=== PATIENT | female | born 1950 | race Caucasian/White ===

== ENCOUNTER 2023-06-29 07:31 | Day surgery (SDC) | payer MEDICARE ==
[2023-06-29] MEDS ORDERED: Lidocaine 1% PF 5 ML VIAL ONE (08:09)
[2023-06-29] MEDS ORDERED: Sodium Bicarbonate 2.5 MEQ/5 ML VIAL ONE (08:10)
[2023-06-29] MEDS ORDERED: Iopamidol-M 300 61% 15 ML VIAL ONE (08:15)
[2023-06-29 11:24] VITALS: BP 145/67; TEMP 96
== END 2023-06-29 10:15 | disposition home or self-care (01) ==
LOC: CSHRAD 07:31
PROVIDERS: ATTEND Neurological Surgery
PROC: B02BYZZ Computerized Tomography (CT Scan) of Spinal Cord using Other Contrast (ICD-10-PCS; principal; 2023-06-29)
DX: M47.12 Other spondylosis with myelopathy, cervical region (principal); R27.0 Ataxia, unspecified; M47.22 Other spondylosis with radiculopathy, cervical region
CPT/HCPCS: 62305; 72126; 72129; 72132; Q9967

== ENCOUNTER 2023-12-30 21:07 | Observation (INO) | payer MEDICARE ==
[2023-12-30 22:34] LABS: #Monocytes 0.9 10x3/uL (0.0-1.1); #Neutrophils 6.8 10x3/uL (1.5-8.4); %Basophils 0.1 % (0.0-2.0); %Eosinophils 0.4 % (0.0-6.0); %Lymphocytes 19.7 % (18.0-47.0); %Monocytes 8.9 % (0.0-10.0); %Neutrophils 70.6 % (40.0-75.0); Hematocrit 33.9 % (34.9-44.5); Hemoglobin 12.3 g/dL (12.0-15.5); Mean Corpuscular HGB CONC 36.3 g/dL (32.0-36.0); Mean Corpuscular Hemoglobin 31.4 pg (27.0-33.0); Mean Corpuscular Volume 86.5 fl (81.6-98.3); Mean Platelet Volume 9.7 fl (7.4-10.4); Platelet Count 338 10x3/uL (150-450); RBC Distribution Width 12.9 % (11.5-14.5); Red Blood Cell (RBC) Count 3.92 10x6/uL (3.90-5.03); White Blood Cell (WBC) Count 9.7 10x3/uL (3.5-10.5)
[2023-12-30 22:41] LABS: Bilirubin 1+ (Negative); Blood, Urine 250 (Negative); Glucose, Urine (Dipstick) Normal (Negative); Ketone, Urine 150 mg/dL (Negative); Leukocyte 500 (Negative); Nitrite Positive (Negative); Protein, Urine (Dipstick) 100 mg/dl (Neg-Trace)
[2023-12-30 23:02] LABS: ALT (SGPT) 19 U/L (8-55); AST (SGOT) 18 U/L (5-34); Albumin 4.3 g/dL (3.4-4.8); Alkaline Phosphatase 109 U/L (40-110); Anion Gap 16 mmol/L (10-20); BUN (Urea Nitrogen) 14 mg/dL (9.8-20.1); Bilirubin, Total 0.4 mg/dL (0.2-1.2); Calc. Creatinine Clearance 0 mL/min (70-130); Calcium 9.2 mg/dL (7.8-10.44); Carbon Dioxide 20 mmol/L (23-31); Chloride 93 mmol/L (98-107); Estimated GFR 91; Globulin 2.2 g/dL (2.4-3.5); Glucose 118 mg/dL (83-110); Potassium 4.1 mmol/L (3.5-5.1); Protein, Total 6.5 g/dL (5.8-8.1); Sodium 125 mmol/L (136-145)
[2023-12-30 23:04] LABS: Clarity Cloudy (Clear)
[2023-12-30 23:08] LABS: CAUTI Indications for Culture Pelvic or flank pain
[2023-12-30 23:09] LABS: RBC/HPF Greater than 50 HPF (0-3)
[2023-12-30 23:10] LABS: Bacteria/HPF None Seen HPF (None Seen); Squamous Epithelial 0-3 HPF (0-3)
[2023-12-30 23:11] LABS: Urine Culture Reflex No No
[2023-12-30] MEDS ORDERED: cefTRIAXone (ROCEPHIN) 1 GM VIAL ONE (23:48)
[2023-12-31 04:00] VITALS: BMI 36.8
[2023-12-31] MEDS: Magnesium Sulfate/D5W 1 GM in Premix 1 BAG IVPB SCH (04:51)
[2023-12-31] MEDS: clonazePAM 0.5 MG TAB PO SCH (04:51)
[2023-12-31] MEDS ORDERED: Sodium Chloride 0.9% 1,000 ML IV SCH (05:15)
[2023-12-31] MEDS ORDERED: Bisacodyl 5 MG TAB PO PRN (05:34)
[2023-12-31] MEDS ORDERED: Senokot S 8.6-50 MG TAB PO PRN (05:34)
[2023-12-31] MEDS ORDERED: tiZANidine HCl 4 MG TAB PO PRN (05:58)
[2023-12-31 06:52] LABS: #Eosinphils 0.1 10x3/uL (0.0-0.5); #Monocytes 0.8 10x3/uL (0.0-1.1); #Neutrophils 5.6 10x3/uL (1.5-8.4); %Basophils 0.1 % (0.0-2.0); %Eosinophils 1.1 % (0.0-6.0); %Lymphocytes 19.5 % (18.0-47.0); %Monocytes 10.1 % (0.0-10.0); Hematocrit 31.9 % (34.9-44.5); Hemoglobin 11.5 g/dL (12.0-15.5); Mean Corpuscular HGB CONC 36.1 g/dL (32.0-36.0); Mean Corpuscular Hemoglobin 31.5 pg (27.0-33.0); Mean Corpuscular Volume 87.4 fl (81.6-98.3); Mean Platelet Volume 9.8 fl (7.4-10.4); Platelet Count 282 10x3/uL (150-450); RBC Distribution Width 12.8 % (11.5-14.5); Red Blood Cell (RBC) Count 3.65 10x6/uL (3.90-5.03); White Blood Cell (WBC) Count 8.1 10x3/uL (3.5-10.5)
[2023-12-31 07:00] LABS: Anion Gap 13 mmol/L (10-20); BUN (Urea Nitrogen) 12 mg/dL (9.8-20.1); Calc. Creatinine Clearance 109 mL/min (70-130); Calcium 8.5 mg/dL (7.8-10.44); Carbon Dioxide 20 mmol/L (23-31); Chloride 95 mmol/L (98-107); Estimated GFR 93; Glucose 140 mg/dL (83-110); Magnesium 2.2 mg/dL (1.6-2.6); Potassium 3.4 mmol/L (3.5-5.1); Sodium 125 mmol/L (136-145)
[2023-12-31] MEDS: Levothyroxine Sodium 100 MCG TAB PO SCH (07:10)
[2023-12-31] MEDS ORDERED: Loratadine 10 MG TAB PO PRN (07:23)
[2023-12-31] MEDS: Enoxaparin 40 MG (0.4 mL) SYRINGE SC SCH (08:38)
[2023-12-31] MEDS: Gabapentin 300 MG CAP PO SCH (08:39)
[2023-12-31] MEDS: Calcium Carbonate 600 MG + Vit D TAB PO SCH (08:40)
[2023-12-31] MEDS: DULoxetine 30 MG CAP PO SCH (08:40)
[2023-12-31] MEDS: Aspirin 81 mg Enteric Coated Tablet PO SCH (08:40)
[2023-12-31] MEDS: Multivitamin w/Zinc Stress 1 TAB PO SCH (08:40)
[2023-12-31] MEDS ORDERED: Artificial Tear Sol 15 ML BOT EA EYE PRN (09:54)
[2023-12-31] MEDS ORDERED: Moisturizing Cream (Eucerin) 113 GM JAR TOP PRN (09:54)
[2023-12-31] MEDS ORDERED: Calcium Carbonate 500 MG ChewTAB PO PRN (09:54)
[2023-12-31] MEDS: Cefdinir 300 MG CAP PO SCH (09:54)
[2023-12-31] MEDS ORDERED: diphenhydrAMINE 25 MG CAP PO PRN (09:54)
[2023-12-31] MEDS ORDERED: Ondansetron PF 4 MG/2 ML Vial IVP PRN (09:54)
[2023-12-31] MEDS ORDERED: Benzonatate 100 MG CAP PO PRN (09:54)
[2023-12-31] MEDS: Sodium Chloride 0.9% 1,000 ML IV SCH (10:03)
[2023-12-31] MEDS: [UNRECOGNIZED DRUG - OTHER] PO SCH (10:59)
[2023-12-31] MEDS: GLUCOSAMINE PO SCH (10:59)
[2023-12-31] MEDS: CHONDR SU A SOD PO SCH (10:59)
[2023-12-31] MEDS: Vit A,C & E/Lutein/Minerals Tablet PO SCH (12:57)
[2023-12-31] MEDS ORDERED: Electrolyte Replacement Protocol 1 EACH FS SCH (13:00)
[2023-12-31] MEDS ORDERED: Acetaminophen 325 MG TAB PO PRN (13:01)
[2023-12-31] MEDS ORDERED: Ketorolac Tromethamine 10 MG TAB PO PRN (13:01)
[2023-12-31] MEDS: Potassium Chloride 20 MEQ TAB PO SCH (14:57)
[2023-12-31] MEDS: Diclofenac 1% 100 GM Topical GEL TP SCH (16:49)
[2023-12-31 17:59] LABS: Anion Gap 11 mmol/L (10-20); BUN (Urea Nitrogen) 8 mg/dL (9.8-20.1); Calc. Creatinine Clearance 109 mL/min (70-130); Calcium 8.4 mg/dL (7.8-10.44); Carbon Dioxide 23 mmol/L (23-31); Chloride 95 mmol/L (98-107); Estimated GFR 93; Glucose 110 mg/dL (83-110); Potassium 3.7 mmol/L (3.5-5.1); Sodium 125 mmol/L (136-145)
[2023-12-31] MEDS: Ezetimibe 10 MG TAB PO SCH (20:36)
[2023-12-31] MEDS: Rosuvastatin 20 MG TAB PO SCH (20:36)
[2023-12-31] MEDS: Ondansetron ODT 4 MG TAB PO PRN (20:36)
[2023-12-31] MEDS: traZODone HCl 50 MG TAB PO SCH (20:38)
[2023-12-31] MEDS ORDERED: cefTRIAXone\\ROCEPHIN 1 GM in Sodium Chloride 0.9% 100 ML IVPB SCH (23:00)
[2024-01-01 04:30] LABS: Anion Gap 12 mmol/L (10-20); BUN (Urea Nitrogen) 6 mg/dL (9.8-20.1); Calc. Creatinine Clearance 100 mL/min (70-130); Calcium 8.6 mg/dL (7.8-10.44); Carbon Dioxide 22 mmol/L (23-31); Chloride 103 mmol/L (98-107); Estimated GFR 91; Glucose 101 mg/dL (83-110); Potassium 4.3 mmol/L (3.5-5.1); Sodium 133 mmol/L (136-145)
[2024-01-01] MEDS: Levothyroxine Sodium 100 MCG TAB PO SCH (05:35)
[2024-01-01 08:34] VITALS: BP 128/58; TEMP 98.3
== END 2024-01-01 10:55 | disposition home or self-care (01) ==
LOC: CSHERS 21:07 → CSHTELE 23:51
PROVIDERS: ADMIT Family Medicine; ATTEND Family Medicine
DX: N31.9 Neuromuscular dysfunction of bladder, unspecified (principal); N30.01 Acute cystitis with hematuria; E87.1 Hypo-osmolality and hyponatremia; E03.9 Hypothyroidism, unspecified; I10 Essential (primary) hypertension; E78.5 Hyperlipidemia, unspecified; Z88.5 Allergy status to narcotic agent; Z88.1 Allergy status to other antibiotic agents; Z91.040 Latex allergy status; Z88.8 Allergy status to other drugs, medicaments and biological substances; Z79.890 Hormone replacement therapy; Z79.84 Long term (current) use of oral hypoglycemic drugs; Z79.82 Long term (current) use of aspirin; Z79.899 Other long term (current) drug therapy; Z96.659 Presence of unspecified artificial knee joint; Z98.890 Other specified postprocedural states
CPT/HCPCS: 51701; 80048 ×3; 80053; 81001; 83735; 83935; 84300; 84443; 85025 ×2; 87086; 96365; 99284; J3475; 36415; 51703; 51798; 96372; 96375; G0378; J0696; J1650; J7050; Q0162